=== PATIENT | male | born 1950 | race Hispanic/Latino ===

== ENCOUNTER → 2023-01-18 | Outpatient (CLI) | payer OTHER ==
[~2023-01-18] MED LIST: ASPI-1197 PO; ATOR10 PO; BENZ200C53 PO; EZET10TA48 PO; METF-444 PO; NINT150C PO
[2023-01-18 12:15] LABS: POTASSIUM 3.9 mmol/L (3.5-5.1)
[2023-01-19 17:02] LABS: COLLECTION PERIOD,URINE 24 HR; TOTAL VOLUME 24HRS,URINE 2000 mL
[2023-01-19 17:03] LABS: TPROTEIN TIMED,URINE 6 mg/dL; TPROTEIN U,24HR CALC 120 mg/24HR (0-165)
[2023-01-20 14:13] LABS: ALBUMIN (PEP) 3.5 g/dL (2.9-4.4)
== END | disposition home or self-care (01) ==
LOC: LAB 08:55
PROVIDERS: ATTEND Student in an Organized Health Care Education/Training Program
DX: J84.10 Pulmonary fibrosis, unspecified (principal); I25.84 Coronary atherosclerosis due to calcified coronary lesion; R06.00 Dyspnea, unspecified; M32.9 Systemic lupus erythematosus, unspecified
CPT/HCPCS: 36415; 80051; 84156; 84165; 86015; 86038; 86215; 86235